=== PATIENT | female | born 1995 | race Hispanic/Latino ===

== ENCOUNTER 2018-09-11 10:02 | Emergency (ER) | payer OTHER ==
--- NOTE | 2018-09-11 10:45 | ER ---
Nurse's Notes [facility] Name: Vanessa Guerin Age: 23 yrs Sex: Female : 1995 Arrival Date: 09/11/2018 Time: 10:13 Bed 11 Private MD: Diagnosis: Acute suppurative otitis media;Acute upper respiratory infection, unspecified Presentation: 09/11 10:13 Presenting complaint: Patient states: i had the headache since yesterday, took Tylenol; hj denies fever; Thursday, i went to my doctor for headache and sinus congestion and teary eyes and they Rx me with eye drops and loratidine and its not helping me; reports R ear pain;. Transition of care: patient was not received from another setting of care. Onset of symptoms was September 11, 2018. Risk Assessment: Do you want to hurt yourself or someone else? Patient reports no desire to harm self or others. Initial Sepsis Screen: Does the patient meet any 2 criteria? No. Patient's initial sepsis screen is negative. Does the patient have a suspected source of infection? No. Patient's initial sepsis screen is negative. Care prior to arrival: None. 10:13 Method Of Arrival: Ambulatory 10:13 Acuity: GRACIA 4 Triage Assessment: 10:52 General: Appears in no apparent distress. Behavior is calm. Respiratory: Respiratory iw effort is even, unlabored. 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 - Social history:: Smoking status: Patient/guardian denies using tobacco. - Ebola Screening: : Patient negative for fever greater than or equal to 101.5 degrees Fahrenheit, and additional compatible Ebola Virus Disease symptoms Patient denies exposure to infectious person Patient denies travel to an Ebola-affected area in the 21 days before illness onset No symptoms or risks identified at this time. Screenin:52 Abuse screen: Denies threats or abuse. Denies injuries from another. Nutritional iw screening: No deficits noted. Tuberculosis screening: No symptoms or risk factors identified. Fall Risk None identified. Assessment: 10:30 General: Appears in no apparent distress. Behavior is calm, cooperative. Pain: iw Complains of pain in head. Neuro: Level of Consciousness is awake, alert, obeys commands, Oriented to person, place, time, situation, Moves all extremities. Cardiovascular: Capillary refill < 3 seconds in bilateral fingers Patient's skin is warm and dry. Respiratory: Airway is patent Breath sounds are clear bilaterally. Derm: Skin is intact, is healthy with good turgor. Musculoskeletal: Range of motion: intact in all extremities. Vital Signs: 10:16 BP 107 / 66; Pulse 79; Resp 18; Temp 98.3(O); Pulse Ox 97% on R/A; Weight 81.65 kg; hj Height 5 ft. 2 in. (157.48 cm); Pain 6/10; 10:16 Body Mass Index 32.92 (81.65 kg, 157.48 cm) hj ED Course: 10:13 Patient arrived in ED. hj 10:15 Triage completed. hj 10:16 Arm band placed on left wrist. hj 10:21 Kay Puentes FNP-C is PHCP. snw 10:21 Yoan Diaz MD is Attending Physician. snw 10:30 Patient has correct armband on for positive identification. iw 10:34 Veronica Bender, RN is Primary Nurse. iw 10:52 No provider procedures requiring assistance completed. Patient did not have IV access iw during this emergency room visit. Administered Medications: 10:53 Drug: Augmentin 500 mg Route: PO; iw Outcome: 10:44 Discharge ordered by MD. snw 10:52 Discharged to home ambulatory. iw 10:52 Condition: good 10:52 Discharge instructions given to patient, Instructed on discharge instructions, follow up and referral plans. Demonstrated understanding of instructions, follow-up care. 10:53 Patient left the ED. iw Signatures: Kay Puentes FNP-C TOP LIFT TRIMMER-Csnw Veronica Bender, RN RN iw Rambo Asher RN RN Corrections: (The following items were deleted from the chart) 10:18 10:16 Pulse 79bpm; Resp 18bpm; Pulse Ox 97% RA; Temp 98.3F Oral; 81.65 kg; Height 5 ft. hj 2 in.; BMI: 32.9; Pain 6/10; hj
--- NOTE | 2018-09-11 10:45 | EDPHYS ---
Physician Documentation [facility] Name: Vanessa Guerin Age: 23 yrs Sex: Female : 1995 Arrival Date: 09/11/2018 Time: 10:13 Bed 11 Private MD: ED Physician Yoan Diaz HPI: 09/11 10:41 This 23 yrs old Female presents to ER via Ambulatory with complaints of Cough, snw Congestion. 10:41 The patient or guardian reports cough, flu symptoms, low-grade fever, hoarse voice. snw Onset: The symptoms/episode began/occurred gradually, 5 day(s) ago, and became persistent. Severity of symptoms: At their worst the symptoms were moderate. Associated signs and symptoms: Pertinent positives: earache, rhinorrhea, sore throat. The patient has not experienced similar symptoms in the past. The patient has been recently seen by a physician: 4 day(s) ago, with similar presenting complaints, given abx eye drops and zyrtec. 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 - Social history:: Smoking status: Patient/guardian denies using tobacco. - Ebola Screening: : Patient negative for fever greater than or equal to 101.5 degrees Fahrenheit, and additional compatible Ebola Virus Disease symptoms Patient denies exposure to infectious person Patient denies travel to an Ebola-affected area in the 21 days before illness onset No symptoms or risks identified at this time. ROS: 10:36 Neck: Negative for injury, pain, and swelling, Cardiovascular: Negative for chest pain, snw palpitations, and edema. 10:36 Abdomen/GI: Negative for abdominal pain, nausea, vomiting, diarrhea, and constipation, Back: Negative for injury and pain, : Negative for injury, bleeding, discharge, and swelling, MS/Extremity: Negative for injury and deformity, Skin: Negative for injury, rash, and discoloration. 10:36 Constitutional: Positive for body aches, malaise. 10:36 Eyes: Positive for recent conjunctival infection. 10:36 ENT: Positive for ear pain, nasal discharge, sinus congestion, sore throat. 10:36 Respiratory: Positive for cough. 10:36 Neuro: Positive for headache. Exam: 10:36 Head/Face: Normocephalic, atraumatic. Eyes: Pupils equal round and reactive to light, snw extra-ocular motions intact. Lids and lashes normal. Conjunctiva and sclera are non-icteric and not injected. Cornea within normal limits. Periorbital areas with no swelling, redness, or edema. 10:36 Neck: Trachea midline, no thyromegaly or masses palpated, and no cervical lymphadenopathy. Supple, full range of motion without nuchal rigidity, or vertebral point tenderness. No Meningismus. Chest/axilla: Normal chest wall appearance and motion. Nontender with no deformity. No lesions are appreciated. Cardiovascular: Regular rate and rhythm with a normal S1 and S2. No gallops, murmurs, or rubs. Normal PMI, no JVD. No pulse deficits. Respiratory: Lungs have equal breath sounds bilaterally, clear to auscultation and percussion. No rales, rhonchi or wheezes noted. No increased work of breathing, no retractions or nasal flaring. Abdomen/GI: Soft, non-tender, with normal bowel sounds. No distension or tympany. No guarding or rebound. No evidence of tenderness throughout. Back: No spinal tenderness. No costovertebral tenderness. Full range of motion. Skin: Warm, dry with normal turgor. Normal color with no rashes, no lesions, and no evidence of cellulitis. MS/ Extremity: Pulses equal, no cyanosis. Neurovascular intact. Full, normal range of motion. Neuro: Awake and alert, GCS 15, oriented to person, place, time, and situation. Cranial nerves II-XII grossly intact. Motor strength 5/5 in all extremities. Sensory grossly intact. Cerebellar exam normal. Normal gait. Psych: Awake, alert, with orientation to person, place and time. Behavior, mood, and affect are within normal limits. 10:36 Constitutional: The patient appears alert, awake, uncomfortable. 10:36 ENT: External ear(s): are unremarkable, Ear canal(s): are normal, TM's: dullness, fluid levels, on the right, Nose: Nasal mucosa: edematous, Mouth: is normal, Posterior pharynx: erythema, that is moderate, Voice: is hoarse, Breath odor: strep like. Vital Signs: 10:16 BP 107 / 66; Pulse 79; Resp 18; Temp 98.3(O); Pulse Ox 97% on R/A; Weight 81.65 kg; hj Height 5 ft. 2 in. (157.48 cm); Pain 6/10; 10:16 Body Mass Index 32.92 (81.65 kg, 157.48 cm) hj MDM: 10:42 Data reviewed: vital signs, nurses notes. Data interpreted: Pulse oximetry: on room air snw is 97 %. Interpretation: normal. Counseling: I had a detailed discussion with the patient and/or guardian regarding: the historical points, exam findings, and any diagnostic results supporting the discharge/admit diagnosis, the need for outpatient follow up, to return to the emergency department if symptoms worsen or persist or if there are any questions or concerns that arise at home. Special discussion: Based on the history and exam findings, there is no indication for further emergent testing or inpatient evaluation. I discussed with the patient/guardian the need to see the primary care provider for further evaluation of the symptoms. 10:44 Patient medically screened. snw Administered Medications: 10:53 Drug: Augmentin 500 mg Route: PO; Disposition: 11:27 Co-signature as Attending Physician, Yoan Diaz MD. rn Disposition: 09/11/18 10:44 Discharged to Home. Impression: Acute suppurative otitis media, Acute upper respiratory infection, unspecified. - Condition is Stable. - Discharge Instructions: Otitis Media, Adult, Upper Respiratory Infection, Adult, Cool Mist Vaporizer, Fatigue, Cough, Adult, Rehydration, Adult, Heat Therapy. - Prescriptions for Augmentin 500- 125 mg Oral Tablet - take 1 tablet by ORAL route every 8 hours for 10 days; 30 tablet. Prednisone 20 mg Oral Tablet - take 2 tablet by ORAL route once daily for 5 days; 10 tablet. - Work release form, Medication Reconciliation Form, Thank You Letter, Antibiotic Education, Prescription Opioid Use form. - Follow up: Private Physician; When: 2 - 3 days; Reason: Recheck today's complaints, Continuance of care, Re-evaluation by your physician. Follow up: Emergency Department; When: As needed; Reason: Worsening of condition. Signatures: Kay Puentes, LEVI MAKER-C LEVI MAKER-Csnw Veronica Bender RN RN iw Nieto, Roman, MD MD rn Joaquin, Rambo, RN RN hj Corrections: (The following items were deleted from the chart) 10:44 10:43 Chart complete. kade braun 10:53 10:44 09/11/2018 10:44 Discharged to Home. Impression: Acute suppurative otitis media; iw Acute upper respiratory infection, unspecified. Condition is Stable. Forms are Medication Reconciliation Form, Thank You Letter, Antibiotic Education, Prescription Opioid Use. Follow up: Private Physician; When: 2 - 3 days; Reason: Recheck today's complaints, Continuance of care, Re-evaluation by your physician. Follow up: Emergency Department; When: As needed; Reason: Worsening of condition. snw
[2018-09-11] MEDS ORDERED: AMOX TR/K CLAV 400MG CHEW TAB PO ONE (10:50)
== END 2018-09-11 10:53 | disposition home or self-care (01) ==
LOC: ER 10:02
DX: H66.001 Acute suppurative otitis media without spontaneous rupture of ear drum, right ear (principal); J06.9 Acute upper respiratory infection, unspecified
CPT/HCPCS: 99283

== ENCOUNTER 2021-05-11 18:12 | Emergency (ER) | payer OTHER ==
--- OUTSIDE RECORDS SUMMARY | 2021-05-11 18:15 | XMS REPORT | Continuity of Care Document ---
:1995 Author Organization [facility] t Address [address] [place] [address] Care Team Providers Name Role Phone Pcp, Does Not Have A Primary Care Physician Susana Andrews Attending Clinician Unavailable Diana SHERWOOD Attending Clinician Unavailable Diana Sherwood MD Attending Clinician Susana Andrews Admitting Clinician Unavailable Payers Payer Name Policy Type Policy Number Effective Date Expiration Date Álvaro [employer] [id number] 2015 HEALTH 00:00:00 Problems Condition Condition Condition Status Onset Resolution Last Treating Co mments Source Name Details Category Date Date Treatment Clinician Date Obesity Obesity Disease Active Univers (BMI (BMI 3-03 ity of 30-39.9) 30-39.9) 00:00: [address] Allergies, Adverse Reactions, Alerts Allergy Allergy Status Severity Reaction(s) Onset Inactive Treating Comm ents Source Name Type Date Date Clinician No Known DA Active U 2016-02 [facility] No Known DA Active U 2016-02 [facility] All[facility]ie -[facility] NO KNOWN Drug Active Univers ALLERGIE Class ity of S [facility] Social History Social Habit Start Date Stop Date Quantity Comments Source Exposure to Not sure University SARS-CoV-2 [facility] (event) [place] Tobacco use and 2021-04-11 2021-04-11 Never used Universit y of exposure 00:00:00 00:00:00 [facility] Alcohol intake 2021-04-11 2021-04-11 Ex-drinker [facility] 00:00:00 00:00:00 (finding) [facility] Sex Assigned At [birth year] Universit y of 00:00:00 00:00:00 [facility] Smoking Status Start Date Stop Date Source Never smoker [facility] Medications Ordered Filled Start Stop Current Ordering Indication Dosage Frequency Signature Comments Components Source Medication Medication Date Date Medication? Clinician (SIG) Name Name NUVARING Yes [id number] 1{each} Insert 1 Univers 0.12-0.015 3-22 Each into ity of mg/24 hr 00:00: vagina [place] vaginal 00 once every Medica l insert month. [place] Insert vaginally and leave in place for 3 consecutiv e weeks, then remove for 1 week. Nitrofurant Yes [id number] 100mg Take 1 Univers oin&Nit. 3-03 capsule by ity o f [place] 00:00: mouth [place] 100 mg 00 (two) Medical capsule times [place] daily. Nitrofurant Yes [id number] 100mg Take 1 Univers oin&Nit. 3-03 capsule by ity o f [place] 00:[place] 100 mg 00 (two) Medical capsule times [place] daily. Vital Signs Vital Name Observation Time Observation Value Comments Source Systolic blood 2021-04-11 21:30:00 132 mm[Hg] [facility] Diastolic blood 2021-04-11 21:30:00 83 mm[facility]Hg[facility] 2021-04-11 21:30:00 88 /min [facility] Body temperature 2021-04-11 21:30:00 37.17 [facility] Res[facility] rate 2021-04-11 21:30:00 18 /min [facility] Body height 2021-04-11 21:30:00 162.6 cm [facility] Body weight 2021-04-11 21:30:00 95.709 kg [facility] BMI 2021-04-11 21:30:00 36.22 kg/m2 [facility] Procedures Procedure Date / Time Performed Performing Clinician Sourc e POCT TEST 2021-04-11 00:00:00 AdJulieta andrade [facility] POCT URINALYSIS W/O 2021-04-11 00:00:00 AdJulieta andrade [facility] SPECIFIC GRAVITY [facility] [id number] 2020-11-05 00:00:00 [facility] [id number] 2020-11-05 00:00:00 KRYSTIAN[facility] Encounters Start End Encounter Admission Attending Care Care Encounter Source Date/Time Date/Time Type Type Clinicians Facility Department ID 2020-11-05 Inpatient MARCOS Andrews [facility] [id number] [facility] 06:00:00 Tabahta [id number] [facility] 2020-11-01 Inpatient Darryl [facility] [id number] [facility] 10:49:00 Tabatha [id number] [facility] [place] 2020-10-31 Inpatient MARCOS Andrews [facility] [id number] [facility] 06:00:00 Tabatha [id number] [facility] 2020-10-27 Inpatient MARCOS Andrews [facility] [id number] [facility] 06:00:00 Tabatha [id number] [facility] 2021-07-31 2021-07-31 [facility] [id number] Univers 13:30:00 13:30:00 [facility] [id number] [facility]-04[facility] 2021-04-30 [facility] [id number] 09:00:00 09:00:00 [facility] 2021-04-29 2021-04-29 [facility]phone [facility] [id number] Univers 00:00:00 00:00:00 Julieta GARCIA [id number] maria luz [facility] [id number] Frances rea PROFESSIO [id number] Va dical NAL 134 [facility] 2021-04-11 2021-04-11 Office [facility] [id number] Univers 15:00:00 16:21:46 Visit Julieta [id number] [facility] [id number] Frances PEREZ [id number] Va dical NAL [address] [place] [address] 2021-04-11 2021-04-11 Outpatient R [facility] [id number] [facility] 15:00:00 16:21:46 JULIETA itmeena [facility] 2020-11-05 2020-11-06 Inpatient MARCOS Andrews [facility] OBPP [id number] [facility] 08:36:00 18:45:00 [place] 25 [facility] 2020-11-01 2020-11-01 Emergency ESSENCE Andrews [facility] [id number] [facility] 10:51:00 13:01:[address] Results Test Description Test Time Test Comments Results Result Comments Source POCT URINALYSIS W/O SPECIFIC GRAVITY 2021-04-11 21:43:00 Test Item Value Reference Range Interpretation Comme nts POCT PH U (test code = 3254) 5 mg/dl 5-8 POCT U LEUK EST (test code = 3263) + Negative - Negative POCT U NIT (test code = 3262) positive Negative - Negative POCT U PROT (test code = 3259) trace Negative - Negative POCT U GLU (test code = 3256) neg Negative - Negative POCT U KETONE (test code = 3258) neg Negative - Negative POCT U BLD (test code = 3257) Negative - Negative [id number] 21:42:00 Test Item Value Reference Range Interpretation Comments POCT PREG (test code = 1605) Negative On board controls acceptable with C Yes Line (test code = 3574) POCT PREG LOT # (test code = 3575) POCT PREG TEST DATE (test code = 3576) [facility] [id number] 10:43:00 Test Item Value Reference Range Interpretation Comments AG HEPATITIS B SURFACE (test code NONREACTIVE NONREACTIVE = HBSAG) AB HEPATITIS C [id number] 10:43:00 Test Item Value Reference Range Interpretation Comments AB HEPATITIS C (test code = NONREACTIVE NONREACTIVE HCVAB) SIGNAL TO CUTOFF (test code = 0.05 <0.80 N CUTOFF) AB [id number] 10:43:00 Test Item Value Reference Range Interpretation Comments AB TREPONEMA (test code = TREPAB) NONREACTIVE NONREACTIVE AB HIV 1 10:43:00 Test Item Value Reference Range Interpretation Comments AB HIV 1 2 (test NONREACTIVE NONREACTIVE Done by S [employer]álvar[employer] [facility] code = VSH47HD) 4th Gen HIV Ag/Ab Combo Screen COVID 19 Asymptomatic IH [id number] 10:40:00 Test Item Value Reference Range Interpretation Comments COVID 19 NEGATIVE NEGATIVE This test has b een Asymptomatic IH AG authorize d only for the (test code = detection ofpro teins from COVNONPUIAG) SARS-CoV-2, not for any other viruses orpathogens. N egative results should be treated as presumptive andconfirmed wi th a molecular assay , if necessary for patientmanageme nt. Negative result s do not rule out COVID- 19 andshould not b e used as the sole basis for treatment orpat ient management deci sions, including infec tion controldecision s. Negative result s should be considered i n thecontext of a patient's recent exposure s, history and thepresence of clinical signs and symptoms consis tent withCOVID-19. T his test has not been FD A cleared or approved; th e test hasbeen authori maria cd by FDA under an Emerge ncy Use Authorization(E UA) for use by laborato jessica certified under the CLIA thatmeet the re quirements to perform mode rate, high or waivedcomple xity tests. This david t is authorized for use at thePoint of Car e (POC), i.e., in patien t care settingsoperati ng under a CLIA Certificat e of Waiver, Certifi sotero ofCompliance, o r Certificate of Accreditation. This test is only authori zed for the duration of thedeclaration that circumstances e xist justifying theauthorizatio n of emergency use o f in vitro diagnostic test sfor detection and/o r diagnosis of CO VID-19 under Qavlthm21 4(b)(1) of the Act, 21 U.S .C. 360bbb-3(b)(1), unless theauthorizatio n is terminated or r evoked sooner. CBC W/AUTO [id number] 09:48:00 Test Item Value Reference Range Interpretation Comments WHITE BLOOD CELL (test code = WBC) 9.9 K/mm3 6.5-12.3 N RED BLOOD CELL (test code = RBC) 4.27 M/mm3 3.51-4.69 N HEMOGLOBIN (test code = HGB) 12.5 g/dL 10.1-13.8 N HEMATOCRIT (test code = HCT) 37.1 % 32.5-41.8 N MEAN CELL VOLUME (test code = MCV) 86.9 fL 84.6-96.6 N MEAN CELL HGB (test code = MCH) 29.3 pg 27.3-33.9 N MEAN CELL HGB CONCETRATION (test 33.7 gm/dL 32.0-34.2 N code = MCHC) RED CELL DISTRIBUTION WIDTH (test 14.0 % 12.2-16.3 N code = RDW) PLATELET COUNT (test code = PLT) 160 K/mm3 134-363 N MEAN PLATELET VOLUME (test code = 11.4 fL 9.2-12.7 N MPV) NEUTROPHIL % (test code = NT%) 77.2 % 57.9-77.3 N LYMPHOCYTE % (test code = LY%) 14.6 % 14.5-29.7 N MONOCYTE % (test code = MO%) 6.7 % 3.6-10.2 N EOSINOPHIL % (test code = EO%) 0.6 % 0.0-3.0 N BASOPHIL % (test code = BA%) 0.2 % 0.1-0.9 N NEUTROPHIL # (test code = NT#) 7.6 K/mm3 LYMPHOCYTE # (test code = LY#) 1.4 K/mm3 MONOCYTE # (test code = MO#) 0.7 K/mm3 EOSINOPHIL # (test code = EO#) 0.06 K/mm3 BASOPHIL # (test code = BA#) 0.0 K/mm3 RBC MORPHOLOGY REQUIRED (test code NORMAL NORMAL = RBCM) PLATELET MORPHOLOGY REQUIRED (test NORMAL NORMAL code = PLTMR) - US FET BIO PH ME W/O [id number] 00:00:00 [facility] : 1995 Sex: F Patient Name: ALIYA ROMERO Unit No: [id number] EXAMS: CPT CODE: [id number] US FET BIO PH ME W/O NST 50647 PROCEDURE INFORMATION: Exam: US Biophysical Profile Without Non-Stress Test Exam date and time: 11/01/2020 11:33 AM Age: 25 years old Clinical indication: Screening exam; Routine US screening of fetus; Third trimester (=28 weeks 0 days); ; Additional info: Decels in office TECHNIQUE: Imaging protocol: US biophysical profile without non-stresstesting. COMPARISON: US PREG AFTER 1ST TRI 12/04/2016 8:57 AM FINDINGS: Gestation: Presentation: Roa viable intrauterine gestation is demonstrated in vertex presentation. The heart rhythm is regular with a heart rate of 136 bpm. Placenta: The the placenta is located po steriorly and grade 3 with the inferior extent away from the internal os. Amniotic fluid index: The biophysical profile score is 8/8. The amniotic fluid index is 13.9 cm with the deepest pocket measuring 6.7 cm. Normal biophysical profile score. BIOPHYSICAL PROFILE: Breathin/2 Gross body movements: 2/2 tone: 2/2 Qualitative amniotic fluid: 2/2 Biophysical Profile Score: 8/8 MATERNAL ANATOMY: Right adnexa: The right ovary measures 4.1 cm by 1.8 cm x 2.8 cm Left adnexa: The left ovary measures 3.6 cm x 1.9 cm x 2.7 cm. Few corpus luteum cyst of are demonstrated in both ovaries. IMPRESSION: Normal biophysical profile score. at 1224 Reported and signed by: Uzma Malcolm MD CC: Tabatha Andrews MD Technologist: Mallika Angelo, CHRISTELMS Probe: Trnscrbd D/ (1224) GCD.CPS Orig Print D/T: S: 11/01/2020 (1224) [facility] NAME: ALIYA ROMERO Radiology Department PHYS:REYMUNDO Nuñez Tabatha Andrews [address] : 1995 AGE: 25 SEX: F [place] [address] LOC: DejahBELGICA PHONE #: [phone] EXAM DATE: 11/01/2020 STATUS: REG ER FAX #: [phone] RAD NO: Page 1 Signed Report Patient Name: ALIYA ROMERO Unit No: [id number] EXAMS: CPT CODE: [id number] US FET BIO PH ME W/O NST 39886 <Continued> [facility] NAME: ALIYA ROMERO Radiology Department PHYS: REYMUNDO AndrewsTabatha [address] : 1995 AGE: 25 SEX: F [place] [address] LOC: DejahBELGICA PHONE #: [phone] EXAM DATE: 11/01/2020 STATUS: REG ER FAX #: [phone] RAD NO: Page 2 Signed Report
[2021-05-11] MEDS ORDERED: ONDANSETRON 4 MG/2 ML VIAL ONE (18:44)
[2021-05-11] MEDS ORDERED: NA CHLORIDE 0.9% 1,000 ML ONE ×3 (18:44→22:47)
[2021-05-11] MEDS ORDERED: MORPHINE 4 MG/ML SYR ONE (18:44)
[2021-05-11] MEDS ORDERED: ACETAMINOPHEN 500 MG TAB ONE (18:44)
[2021-05-11 18:46] LABS: Urine Blood 2+ (Negative); Urine Glucose Trace (Negative); Urine Protein 2+ (Negative); Urine pH 6.5 (5.0-7.0)
[2021-05-11 18:54] LABS: Absolute Lymphocytes (CBC) 0.4 K/uL (0.7-4.9); Hematocrit 39.4 % (36.0-45.0); Lymphocytes % 3.2 % (15.3-44.8); MPV 8.2 fL (7.6-11.3); RBC Red Blood Cell Count 4.66 M/uL (3.86-4.86)
[2021-05-11 19:11] LABS: Albumin 3.3 g/dL (3.4-5.0); Bilirubin Total 2.4 mg/dL (0.2-1.0); Potassium 3.7 mmol/L (3.5-5.1); Protein, Total 7.9 g/dL (6.4-8.2)
[2021-05-11 19:35] LABS: SARS-COV-2 RT PCR NEGATIVE (NEGATIVE)
--- NOTE | 2021-05-11 19:40 | RAD REPORT ---
EXAM DESCRIPTION: CT - Abdomen Pelvis W Contrast - 05/11/2021 7:11 pm CLINICAL HISTORY: FLANK PAIN COMPARISON: Stone Protocol dated 05/08/2021 TECHNIQUE: Biphasic, helical CT imaging of the abdomen and pelvis was performed following 100 ml non -ionic IV contrast. No oral contrast administered. All CT scans are performed using dose optimization technique as appropriate and may include automated exposure control or mA/KV adjustment according to patient size. FINDINGS: No suspicious findings in the lung bases. The liver, spleen, and pancreas show no suspicious findings. Liver attenuation is borderline to mildl y fatty infiltrated. Gallbladder and biliary tree are also without suspicious finding. A 5 mm left UPJ calculus is present with no hydronephrosis. No delayed left renal function. Punctate nonobstructing 2 mm sized calyx calculi seen in the left kidney. Right kidney shows a delayed function relative to the left and there is heterogeneous areas of dimini shed attenuation scattered throughout the right renal parenchyma. Right kidney edematous with perinep hric stranding. There is mild hydronephrosis of the pelvis and calices. There is an 8 mm obstructing calculus in the proximal right ureter. Urinary bladder is fully contracted. No bladder calculi seen. Uterus and ovaries show no acute findin gs. A 2.3 cm left ovarian cyst is present. No acute bowel finding. The appendix is normal. No free air, free fluid or pneumatosis. No other are as of inflammatory stranding. No hernia, mass or bulky lymphadenopathy. No suspicious bony findings. IMPRESSION: Mild right-sided hydronephrosis secondary to an 8 mm proximal ureter calculus. Right-sided moderately severe pyelonephritis. Left kidney has a 5 mm UPJ calculus present but no evidence for hydronephrosis and no delayed functio n or abnormal parenchymal enhancement.
[2021-05-11 19:41] LABS: Urine Bacteria <20 /HPF (<20); Urine RBC <5 /HPF (NONE SEEN)
--- NOTE | 2021-05-11 20:00 | ER ---
Nurse's Notes [facility] Name: Vanessa Guerin Age: 26 yrs Sex: Female : 1995 Arrival Date: 05/11/2021 Time: 18:14 Bed 20 Private MD: Diagnosis: Pyelonephritis acute;Hydronephrosis with renal and ureteral calculous obstruction Presentation: 05/11 18:27 Chief complaint: Patient states: Chills, fever, dizzy \T\ right flank pain X 3-4 days. ld1 Coronavirus screen: At this time, the client does not indicate any symptoms associated with coronavirus-19. Ebola Screen: No symptoms or risks identified at this time. Initial Sepsis Screen: Does the patient meet any 2 criteria? No. Patient's initial sepsis screen is negative. Does the patient have a suspected source of infection? No. Patient's initial sepsis screen is negative. Risk Assessment: Do you want to hurt yourself or someone else? Patient reports no desire to harm self or others. Onset of symptoms was May 11, 2021. 18:27 Method Of Arrival: Ambulatory ld1 18:27 Acuity: GRACIA 3 ld1 Triage Assessment: 18:28 Headache History: Denies prior headaches. General: Appears in no apparent distress. ld1 comfortable, Behavior is calm, cooperative, appropriate for age. Pain: Complains of pain in right low back Pain does not radiate. Pain currently is 6 out of 10 on a pain scale. Quality of pain is described as throbbing, Pain began 2-3 days ago. Is continuous. EENT: No signs and/or symptoms were reported regarding the EENT system. Neuro: Level of Consciousness is awake, alert, obeys commands, Oriented to person, place, time, situation. Cardiovascular: Capillary refill < 3 seconds Patient's skin is warm and dry. Respiratory: Airway is patent Respiratory effort is even, unlabored. : No signs and/or symptoms were reported regarding the genitourinary system. CYLINDER CHECKER: 18:28 LMP N/A - Recent ld1 Historical: - Allergies: 18:28 No Known Allergies; ld1 - Home Meds: 18:28 None [Active]; ld1 - PMHx: 18:28 None; ld1 - PSHx: 18:28 None; ld1 - Immunization history:: Adult Immunizations up to date, Client reports receiving the 2nd dose of the Covid vaccine. - Social history:: Smoking status: Patient denies any tobacco usage or history of. Patient/guardian denies using alcohol. Screenin:22 Abuse screen: Denies threats or abuse. Denies injuries from another. Nutritional tk1 screening: No deficits noted. Tuberculosis screening: No symptoms or risk factors identified. Fall Risk None identified. Assessment: 19:22 General: Appears comfortable, obese, well groomed, well developed, well nourished, tk1 Behavior is calm, cooperative, appropriate for age. Pain: Denies pain. Neuro: Level of Consciousness is awake, alert, obeys commands, Oriented to person, place, time, situation, Appropriate for age Cycle Repairer are equal bilaterally Moves all extremities. Gait is steady, Speech is normal, Facial symmetry appears normal. Cardiovascular: Capillary refill < 3 seconds is brisk in bilateral fingers. Respiratory: Airway is patent Respiratory effort is even, unlabored, Respiratory pattern is regular, symmetrical, Breath sounds are clear bilaterally. GI: Abdomen is round non-distended, obese, Bowel sounds present X 4 quads. Abd is soft Abd is non tender X 4 quads. : No deficits noted. No signs and/or symptoms were reported regarding the genitourinary system. EENT: No deficits noted. No signs and/or symptoms were reported regarding the EENT system. Derm: No deficits noted. No signs and/or symptoms reported regarding the dermatologic system. Musculoskeletal: No deficits noted. No signs and/or symptoms reported regarding the musculoskeletal system. 20:30 Reassessment: Patient awaiting acceptance and transfer. Follow up labs collected and tk1 sent to lab. Meds administered per order. 21:32 Reassessment: Report called to DESMOND Kathleen at [facility]. tk1 22:42 Reassessment: Report given to [facility]. Patient transferred to [facility]. tk1 Vital Signs: 18:27 BP 117 / 71; Pulse 157; Resp 18; Temp 103.1(O); Pulse Ox 100% on R/A; Weight 95.25 kg; ld1 Height 5 ft. 2 in. (157.48 cm); Pain 6/10; 19:22 BP 104 / 64 RA Supine (auto/reg); Pulse 121 MON; Resp 20 S; Temp 98.6(O); Pulse Ox 99% tk1 on R/A; Pain 0/10; 20:26 Pain 0/10; tk1 20:30 BP 99 / 65 RA Supine (auto/lg); Pulse 108 MON; Resp 20; Temp 98.5(O); Pulse Ox 99% on tk1 R/A; Pain 0/10; 20:33 BP 104 / 68; Pulse 111; Resp 18; Temp 98.5(TE); Pulse Ox 100% on R/A; oe 21:28 BP 103 / 66 RA Supine (auto/reg); Pulse 100 MON; Resp 18 S; Pulse Ox 98% on R/A; Pain tk1 0/10; 18:27 Body Mass Index 38.41 (95.25 kg, 157.48 cm) ld1 ED Course: 18:14 Patient arrived in ED. am2 18:17 Tim Maciel NP is PHCP. pm1 18:17 Yoan Diaz MD is Attending Physician. pm1 18:19 Arnie Fletcher, RN is Primary Nurse. jd3 18:28 Triage completed. ld1 18:28 Arm band placed on right wrist. ld1 19:13 CT Abd/Pelvis - IV Contrast Only In Process Unspecified. EDMS 19:20 Primary Nurse role handed off by Arnie Fletcher, DESMOND cs9 19:22 Grace Mendez is Primary Nurse. tk1 19:22 Patient has correct armband on for positive identification. Bed in low position. Call tk1 light in reach. Side rails up X2. Adult w/ patient. Pulse ox on. NIBP on. 19:22 No provider procedures requiring assistance completed. IV is patent, is intact, with tk1 fluids infusing freely, with good blood return, 20g to left AC insitu from prior shift.. 20:05 COVID 19 CPL Sent. cs9 20:10 Notified ED physician of a critical lab result(s). band 26%. tw5 20:25 Lactate Sent. tk1 20:25 Procalcitonin Sent. tk1 20:25 Blood Culture Adult (2) Sent. tk1 22:46 Dr. Luana Tobar accepted patient. Patient going to [facility]. cs9 Administered Medications: 18:50 Drug: morphine 4 mg Route: IVP; Site: left antecubital; jd3 20:26 Follow up: Pain 0/10 Adult; Response: Pain is decreased; RASS: Alert and Calm (0) tk1 19:00 Drug: NS 0.9% 1000 ml Route: IV; Rate: 1 bolus; Site: left antecubital; jd3 20:28 Follow up: Response: No adverse reaction; IV Status: Completed infusion; IV Intake: tk1 1000ml 19:00 Drug: Zofran (Ondansetron) 4 mg Route: IVP; Site: left antecubital; jd3 20:28 Follow up: Response: Nausea is decreased tk1 19:00 Drug: Tylenol 1000 mg Route: PO; jd3 20:27 Follow up: Response: Temperature is decreased tk1 20:25 Drug: NS 0.9% 1000 ml Route: IV; Rate: 1000 ml; Infused Over: 1 hrs; Site: left tk1 antecubital; Delivery: Primary tubing; 20:26 Follow up: Response: No adverse reaction; IV Status: Completed infusion; IV Intake: tk1 1000ml 20:27 Drug: Rocephin (cefTRIAXone) 1 grams Route: IV; Rate: calculated rate; Infused Over: 30 tk1 mins; Site: left antecubital; Delivery: Primary tubing; 21:00 Follow up: Response: No adverse reaction; IV Status: Completed infusion; IV Intake: [id number] 22:45 Drug: NS 0.9% 1000 ml Route: IV; Rate: 125 ml/hr; Infused Over: 8 hrs; Site: left tk1 antecubital; Delivery: Primary tubing; 22:45 Follow up: Response: Medication administered at discharge.; IV Status: Infusion tk1 continued; IV Intake: 2ml Intake: 20:26 IV: 1000ml; Total: 1000ml. tk1 20:28 IV: 1000ml; Total: 2000ml. tk1 21:00 IV: 50ml; Total: 2050ml. tk1 22:45 IV: 2ml; Total: 2052ml. tk1 Outcome: 19:59 ER care complete, transfer ordered by . pm1 21:30 Transferred by ground EMS to other acute care facility: [facility]. Transfer form tk1 completed. 21:30 Condition: stable 21:30 Instructed on the need for transfer. 22:46 Patient left the ED. tk1 Addendum: 05/15/2021 08:28 Addendum: Culture Results: Positive urine culture. Pt was transferred to [facility], a a5 called pt and left voice mail. Signatures: Dispatcher [employer] Shanna Davalos, RN RN aa5 Tim Maciel, MACHINE GUNNER MACHINE GUNNER pm1 Catrachito Parsons Amanda am2 Arnie Fletcher RN RN jd3 Landy Osborn RN RN ld1 Latha Guerra tw5 Betty Greenberg 9 Grace Mendez tk1 Corrections: (The following items were deleted from the chart) 05/11 19:01 19:00 Zofran (Ondansetron) 4 mg IVP in right antecubital jd3 jd3 20:35 20:33 BP 104 / 68; Pulse 111bpm; Resp 18bpm; Pulse Ox 100% RA; Temp 98.5F Temporal; oe oe
--- NOTE | 2021-05-11 20:00 | EDPHYS ---
Physician Documentation [facility] Name: Vanessa Guerin Age: 26 yrs Sex: Female : 1995 Arrival Date: 05/11/2021 Time: 18:14 Bed 20 Private MD: ED Physician Yoan Diaz HPI: 05/11 18:31 This 26 yrs old Female presents to ER via Ambulatory with complaints of Fever, pm1 Headache, Back Pain, chills. 18:31 The patient complains of pain in the right low back. The pain does not radiate. Onset: pm1 The symptoms/episode began/occurred 4 day(s) ago. Modifying factors: The symptoms are alleviated by nothing. the symptoms are aggravated by nothing. Associated signs and symptoms: Pertinent positives: fever, headache, Darkened urine, Pertinent negatives: diarrhea, nausea, vomiting. The patient has not experienced similar symptoms in the past. The patient has been recently seen by a physician: 2 week(s) ago, with different complaint(s), Taking medications for weight loss. Patient took Advil for the fever and chills 30 minutes prior to arrival. her mother also started an IV saline lock on her right AC and infused 1L NS prior to arrival. LOCOMOTIVE OILER: 18:28 LMP N/A - Recent ld1 Historical: - Allergies: 18:28 No Known Allergies; ld1 - Home Meds: 18:28 None [Active]; ld1 - PMHx: 18:28 None; ld1 - PSHx: 18:28 None; ld1 - Immunization history:: Adult Immunizations up to date, Client reports receiving the 2nd dose of the Covid vaccine. - Social history:: Smoking status: Patient denies any tobacco usage or history of. Patient/guardian denies using alcohol. ROS: 18:31 Eyes: Negative for injury, pain, redness, and discharge, ENT: Negative for injury, pm1 pain, and discharge, Cardiovascular: Negative for chest pain, palpitations, and edema, Respiratory: Negative for shortness of breath, cough, wheezing, and pleuritic chest pain, Abdomen/GI: Negative for abdominal pain, nausea, vomiting, diarrhea, and constipation. 18:31 MS/Extremity: Negative for injury and deformity, Skin: Negative for injury, rash, and discoloration. 18:31 Constitutional: Positive for chills, fever. 18:31 Back: Positive for flank pain, on the right. 18:31 : Positive for flank pain, darkened urine, Negative for burning with urination, vaginal discharge. 18:31 All other systems are negative. Exam: 18:31 Head/Face: Normocephalic, atraumatic. pm1 18:31 Skin: Warm, dry with normal turgor. Normal color with no rashes, no lesions, and no evidence of cellulitis. MS/ Extremity: Pulses equal, no cyanosis. Neurovascular intact. Full, normal range of motion. 18:31 Constitutional: The patient appears in no acute distress, alert, awake, comfortable, non-toxic, well developed, well hydrated, well groomed, well nourished, febrile. 18:31 ENT: External ear(s): no acute changes, Ear canal(s): no acute changes, TM's: no acute changes, Mouth: no acute changes, Posterior pharynx: Airway: no evidence of obstruction, Tonsils: swelling, is not appreciated, erythema, that is moderate, exudate, is not appreciated, peritonsillar mass, is not appreciated. 18:31 Neck: Exam negative for acute changes, ROM/movement: no acute changes. 18:31 Cardiovascular: Rate: tachycardic, Rhythm: regular, Pulses: no pulse deficits are appreciated, Heart sounds: normal, normal S1and S2, Edema: is not appreciated. 18:31 Respiratory: Exam negative for acute changes, respiratory distress, shortness of breath, Breath sounds: are clear throughout. 18:31 Abdomen/GI: Exam negative for acute changes, Inspection: abdomen appears normal, Palpation: abdomen is soft and non-tender, in all quadrants. 18:31 Back: pain, that is mild, of the right low back, normal spinal alignment noted. 18:31 Neuro: Exam negative for acute changes, Orientation: is normal, Mentation: is normal, Motor: is normal, moves all fours, Gait: is steady, at a normal pace, without difficulty. Vital Signs: 18:27 BP 117 / 71; Pulse 157; Resp 18; Temp 103.1(O); Pulse Ox 100% on R/A; Weight 95.25 kg; ld1 Height 5 ft. 2 in. (157.48 cm); Pain 6/10; 19:22 BP 104 / 64 RA Supine (auto/reg); Pulse 121 MON; Resp 20 S; Temp 98.6(O); Pulse Ox 99% tk1 on R/A; Pain 0/10; 20:26 Pain 0/10; tk1 20:30 BP 99 / 65 RA Supine (auto/lg); Pulse 108 MON; Resp 20; Temp 98.5(O); Pulse Ox 99% on tk1 R/A; Pain 0/10; 20:33 BP 104 / 68; Pulse 111; Resp 18; Temp 98.5(TE); Pulse Ox 100% on R/A; oe 21:28 BP 103 / 66 RA Supine (auto/reg); Pulse 100 MON; Resp 18 S; Pulse Ox 98% on R/A; Pain tk1 0/10; 18:27 Body Mass Index 38.41 (95.25 kg, 157.48 cm) ld1 MDM: 18:17 Patient medically screened. pm1 19:57 Data reviewed: vital signs. Data interpreted: Pulse oximetry: on room air is 100 %. pm1 Interpretation: normal. Counseling: I had a detailed discussion with the patient and/or guardian regarding: the historical points, exam findings, and any diagnostic results supporting the discharge/admit diagnosis, lab results, radiology results, the need to transfer to another facility. 21:16 Physician consultation: Abe Gallagher regarding regarding transfer, patient's condition, pm1 and will see patient. 05/11 18:28 Order name: CBC with Diff; Complete Time: 20:13 pm1 05/11 18:28 Order name: CMP; Complete Time: 19:14 pm1 05/11 18:28 Order name: Lipase; Complete Time: 19:14 pm1 05/11 18:28 Order name: Urine Microscopic Only; Complete Time: 19:43 pm1 05/11 18:29 Order name: COVID-19/FLU A+B (Document "Date of Onset" if Symptomatic); Complete Time: pm1 19:43 05/11 18:29 Order name: Strep; Complete Time: 19:51 pm1 05/11 18:46 Order name: Urine Dipstick-Ancillary; Complete Time: 18:50 EDMS 05/11 18:57 Order name: Manual Differential; Complete Time: 20:13 EDMS 05/11 19:19 Order name: Urine --Ancillary (enter results); Complete Time: 20:22 cs9 05/11 19:44 Order name: Urine Culture EDMS 05/11 19:50 Order name: Blood Culture Adult (2) pm1 05/11 19:50 Order name: Procalcitonin; Complete Time: 21:06 pm1 05/11 19:50 Order name: Lactate; Complete Time: 20:47 pm1 05/11 18:28 Order name: CT Abd/Pelvis - IV Contrast Only; Complete Time: 19:43 pm1 05/11 18:28 Order name: IV Saline Lock; Complete Time: 18:59 pm1 05/11 18:28 Order name: Labs collected and sent; Complete Time: 19:00 pm1 05/11 18:28 Order name: Urine Dipstick-Ancillary (obtain specimen); Complete Time: 18:37 pm1 05/11 18:28 Order name: Urine Test (obtain specimen); Complete Time: 18:37 pm1 05/11 19:44 Order name: Vital Signs; Complete Time: 20:27 pm1 05/11 19:52 Order name: COVID 19 CPL EDMS 05/11 19:53 Order name: Throat Culture EDMS Administered Medications: 18:50 Drug: morphine 4 mg Route: IVP; Site: left antecubital; jd3 20:26 Follow up: Pain 0/10 Adult; Response: Pain is decreased; RASS: Alert and Calm (0) tk1 19:00 Drug: NS 0.9% 1000 ml Route: IV; Rate: 1 bolus; Site: left antecubital; jd3 20:28 Follow up: Response: No adverse reaction; IV Status: Completed infusion; IV Intake: tk1 1000ml 19:00 Drug: Zofran (Ondansetron) 4 mg Route: IVP; Site: left antecubital; jd3 20:28 Follow up: Response: Nausea is decreased tk1 19:00 Drug: Tylenol 1000 mg Route: PO; jd3 20:27 Follow up: Response: Temperature is decreased tk1 20:25 Drug: NS 0.9% 1000 ml Route: IV; Rate: 1000 ml; Infused Over: 1 hrs; Site: left tk1 antecubital; Delivery: Primary tubing; 20:26 Follow up: Response: No adverse reaction; IV Status: Completed infusion; IV Intake: tk1 1000ml 20:27 Drug: Rocephin (cefTRIAXone) 1 grams Route: IV; Rate: calculated rate; Infused Over: 30 tk1 mins; Site: left antecubital; Delivery: Primary tubing; 21:00 Follow up: Response: No adverse reaction; IV Status: Completed infusion; IV Intake: [id number] 22:45 Drug: NS 0.9% 1000 ml Route: IV; Rate: 125 ml/hr; Infused Over: 8 hrs; Site: left tk1 antecubital; Delivery: Primary tubing; 22:45 Follow up: Response: Medication administered at discharge.; IV Status: Infusion tk1 continued; IV Intake: 2ml Disposition: 05/12 10:51 Co-signature as Attending Physician, Yoan Diaz MD. rn Disposition Summary: 05/11/21 19:59 Transfer Ordered Transfer Location: Other Acute Care Facility pm1 Reason: Specialty pm1 Condition: Stable pm1 Problem: new pm1 Symptoms: have improved pm1 Accepting Physician: (05/11/21 22:46) tk1 Diagnosis - Pyelonephritis acute pm1 - Hydronephrosis with renal and ureteral calculous obstruction pm1 Forms: - Medication Reconciliation Form pm1 - SBAR form pm1 Signatures: Dispatcher [employer] EDYoan Shah MD MD rn [place] Montejo, PILLAR MAN-C PILLAR MAN-Cla1 Tim Maciel, INSURANCE CLAIMS EXAMINER INSURANCE CLAIMS EXAMINER pm1 Arnie Fletcher RN RN jLandy Hernandes RN RN ld1 Grace Mendez tk1 Corrections: (The following items were deleted from the chart) 05/11 22:46 19:59 pm1 tk1
[2021-05-11 20:11] LABS: Blood Morphology Comment NOT SEEN (NOT SEEN); Platelet Estimate ADEQ
[2021-05-11] MEDS ORDERED: NA CHLORIDE 0.9% 50 ML ONE (20:23)
[2021-05-11] MEDS ORDERED: CEFTRIAXONE 1000 MG/VIAL ONE (20:23)
[2021-05-11 23:12] VITALS: TEMP 98.5
[2021-05-11 23:15] VITALS: BP 103/66; O2SAT 98
== END 2021-05-11 22:46 ==
LOC: ER 18:12
DX: N10 Acute pyelonephritis (principal); N13.2 Hydronephrosis with renal and ureteral calculous obstruction; Z20.822 Contact with and (suspected) exposure to COVID-19
CPT/HCPCS: 96365; 96361; 87040 ×2; 87070; 87088; 85025; 87086; 36415; 81025; 82565; 87081; 83605; 87077; 87186; 83690; 80053; 84145; 0240U; 74177; 96375; 99285; Q9967; J7030 ×3; J2405; 81003; 81015

== ENCOUNTER 2022-02-19 17:35 | Emergency (ER) | payer OTHER ==
--- OUTSIDE RECORDS SUMMARY | 2022-02-19 17:39 | XMS REPORT | Continuity of Care Document ---
:1995 Author Organization [facility] t Address [address] [place] [address] Care Team Providers Name Role Phone PCP, PATIENT DOES NOT HAVE A Primary Care Physician UnavailJUAN Hare Attending Clinician Unavailable Oli Cho NP Attending Clinician OLI CHO Attending Clinician Unavailable Doctor Unassigned, [place] Attending Clinician Unavailable Julieta Galicia MD Attending Clinician Celso Spencer Attending Clinician Unavailable QI BAUTISTA Attending Clinician Unavailable Taurus Murphy Attending Clinician Unavailable JULIETA GALICIA Attending Clinician Unavailable Tabatha Andrews Attending Clinician Unavailable Tabatha Andrews Admitting Clinician Unavailable Taurus Murphy Admitting Clinician Unavailable Payers Payer Name Policy Type Policy Number Effective Date Expiration Date S nathalie [place] [employer] [id number] 2015 HEALTH 00:00:00 Problems Condition Condition Condition Status Onset Resolution Last Treating Co mments Source Name Details Category Date Date Treatment Clinician Date Sterilizat Sterilizat Disease Active U nivers ion ion 7-13 ity of consult consult 00:00: [address] Encounter Encounter Disease Active Uni vers for female for female 7-13 it y of 00:00: [place] control control [address] [place] [address] BMI BMI Disease Active Univers 38.0-38.9, 38.0-38.9, 7-13 it y of adult adult 00:00: [address] Allergies, Adverse Reactions, Alerts Allergy Allergy Status Severity Reaction(s) Onset Inactive Treating Comm ents Source Name Type Date Date Clinician No Known DA Active U [facility]02 [place] [facility] 00:00: d 00 [place] No Known DA Active U 2016-02 [facility] 1-15 [facility] [address] [place] [address] No Known DA Active U 2016-02 [facility] Allergie 1-15 Clear s 00:00: [place] 00 [facility] NO KNOWN Drug Active Univers ALLERGIE Class ity of S [facility] Social History Social Habit Start Date Stop Date Quantity Comments Source Alcohol intake 2021-09-18 2021-09-18 Current drinker Unive rsity of 00:00:00 00:00:00 of alcohol [facility] (finding) [place] Exposure to 2021-08-10 2021-08-20 Not sure [facility]-CoV-2 00:00:00 13:50:00 [facility] (event) [place] Tobacco use and 2021-08-20 2021-08-20 Smokeless tobacco Un iversity of exposure 00:00:00 00:00:00 non-user [facility] Sex Assigned At [birth year] Universit y of 00:00:00 00:00:[address] [facility] Smoking Status Start Date Stop Date Source Never smoked tobacco [facility] Medications Ordered Filled Start Stop Current Ordering Indication Dosage Frequency Signature Comments Components Source Medication Medication Date Date Medication? Clinician (SIG) Name Name norgestimat Yes [id number] 1{tbl} Take 1 Univers e-ethinyl 7-12 tablet by ity o f estradioL [place] 00 the Medical [facility] morning. Sha YOUNGER, 28,) 0.18/0.215/ 0.25 mg-25 mcg tablet norgestimat Yes [id number] 1{tbl} Take 1 Univers e-ethinyl 7-12 tablet by ity o [place] estradioL [place] 00 the Medical [facility]EN morning. Toby h LO, 28,) 0.18/0.215/ 0.25 mg-25 mcg tablet Nitrofurant 2021- Yes [id number] 100mg Take 1 Univers oin&Nit. 3-03 capsule by ity o f Macrocryst 00:00[place] 100 mg 00 (two) Medical capsule times [place] daily. Nitrofurant 2021-0 Yes [id number] 100mg Take 1 Univers oin&Nit. 3-03 capsule by ity o [place] Mac[place] 100 mg 00 (two) Medical capsule times [place] daily. Vital Signs Vital Name Observation Time Observation Value Comments Source Systolic blood 2021-09-17 19:48:00 115 mm[Hg[facility] Diastolic blood 2021-09-17 19:48:00 79 mm[Hg] [facility] Heart rate 2021-09-17 19:48:00 50 /min [facility] Respiratory rate 2021-09-17 19:48:00 18 /min [facility] Body height 2021-09-17 19:48:00 157.5 cm [facility] Body weight 2021-09-17 19:48:00 93.441 kg [facility] BMI 2021-09-17 19:48:00 37.68 kg/m2 [facility] Oxygen saturation in 2021-09-17 19:48:00 97 /min [facility] Arterial blood by [facility] Pulse oximetry [place] Procedures Procedure Date / Time Performed Performing Clinician Vernon doherty [id number] 2021-05-12 00:00:00 CORTEZ [facility] [id number] 2021-05-12 00:00:00 JANICEE [facility] [id number] 2020-11-05 00:00:00 KRYSTIAN.09 [facility] [id number] 2020-11-05 00:00:00 [facility] Encounters Start End Encounter Admission Attending Care Care Encounter Source Date/Time Date/Time Type Type Clinicians Facility Department ID 2021-10-18 2021-10-18 Outpatient JUAN CARDOZA [facility] [id number] Univers 10:30:00 10:30:[address] [facility] 2021-09-17 2021-09-17 Office [facility] [id number] Univers 14:30:00 15:13:17 Visit Oli WASSERMAN [id number] it y of WOMEN'S 4.2.7.2.686 [facility] [id number] [address] 2021-09-17 2021-09-17 Outpatient R TAMMIE [facility] B [id number] Univers 14:30:00 15:13:17 HEATHEROLI SPENCER [facility] 2021-09-17 2021-09-17 Outpatient R JENNIFER [facility] B [id number] Univers 14:30:00 14:30:00 [facility] 2021-09-17 2021-09-17 Orders Doctor MYCHAL [id number] Univers 00:00:00 00:00:00 Only Unassigned, KAMRYN [id number] ity of [place] [facility] 4.2.7.2.686 [facility] [phone] [place] [address] [place] 2021-09-03 2021-09-03 Telephone [facility] [id number] Univers 00:00:00 00:00:00 Oli WASSERMAN [id number] it y of PEDIATRIC 4.2.7.2.686 [facility] [id number] [address] 2021-08-20 2021-08-20 Outpatient R HEATEHROLI SPENCER [facility] B [id number] Univers 13:45:00 14:24:16 TAMMIELOI [facility] 2021-08-20 2021-08-20 Office [facility] [id number] Univers 13:45:00 14:24:16 Visit Oli LUX [id number] it y of [place] [facility] [phone] [facility] [address] 2021-08-20 2021-08-20 Outpatient R OLI CHO [facility] B [id number] Univers 13:45:00 14:24:16 OLI CHO [facility] 2021-08-20 2021-08-20 Outpatient R OLI CHO [facility] B [id number] Univers 13:45:00 13:45:00 OLI CHO [facility] 2021-08-20 2021-08-20 Orders Doctor MYCHAL [id number] Univers 00:00:00 00:00:00 Only Unassigned, AKMRYN [id number] ity of [facility] 4.2.7.2.686 Dave as [id number] [facility] 009 Branch 2021-08-19 2021-08-19 [facility] [id number] [facility] 00:00:00 00:00:00 Julieta GARCIA [id number] ity [facility] [place]2.[place] [phone] [address] 2021-07-10 2021-07-10 Outpatient Celso Huertas [facility] LA0 [id number] [facility] 12:24:00 12:24:00 96 [facility] [place] 2021-06-20 2021-06-20 Outpatient Celso Huertas [facility] [id number] [facility] 07:47:00 07:47:00 [id number] [facility] [place] 2021-06-12 2021-06-20 Inpatient Celso [facility]as [facility] YANN [id number] [id number] [facility] 10:30:00 07:47:00 60 [facility] [place] 2021-06-03 2021-06-03 Outpatient Susana BAUTISTA [facility] [id number] Univers 13:00:00 13:00:00 QI [facility] 2021-05-12 2021-05-13 Inpatient ESSENCE Murphy [facility] [id number] [facility] 15:49:00 13:56:00 Taurus 57 [facility] 2021-05-12 2021-05-12 Outpatient PENNY Murphy [id number] [facility] 08:13:00 08:13:00 Taurus 26 [facility] 2021-04-30 2021-04-30 Outpatient R ADUM, [facility] [id number] Univers 09:00:00 09:00:00 JULIETA ity [facility] 2021-04-30 2021-04-30 Outpatient R ADUM, [facility] [id number] Univers 09:00:00 09:00:00 JULIETA ity [facility] 2021-04-29 2021-04-29 Telephone Ad, [facility] [id number] Univers 00:00:00 00:00:00 Julieta Ortiz JOSE [id number] ity of [facility] 4.2.7.2.[place] [phone] Ne dical NAL [address] [place] [address] 2021-04-11 2021-04-11 Office Ad, [facility] [id number] Univers 15:00:00 16:21:46 Visit Julieta Ortiz JOSE [id number] ity of [place] [phone] Ne dical NAL [address] [place] [address] 2021-04-11 2021-04-11 Outpatient R AD, [facility] [id number] Univers 15:00:00 16:21:46 JULIETA ity [facility] 2021-04-11 2021-04-11 Outpatient R AD, [facility] [id number] Univers 15:00:00 15:00:00 JULIETA ity [facility] 2021-04-11 2021-04-11 Orders Doctor HORTA [id number] Univers 00:00:00 00:00:00 Only Unassigned, KAMRYN [id number] ity of [place] [facility] 4.2.7.2.686 Dave as [phone] [address] 2020-11-05 2020-11-06 Inpatient CORRIE Ireland LD [id number] [facility] 06:00:00 18:45:[address] [facility] 2020-11-01 2020-11-01 Inpatient CORRIE Phan BELGICA [id number] [facility] 10:49:00 13:01:[address] [facility] Results Test Description Test Time Test Comments Results Result Sourc e Comments - US RETROPERITONEAL 2021-07-10 COM 14:34:[facility] 1995 Sex: F * Name: ALIYA ROMERO [facility] : 1995 Age/S: 26 / F [id number] [facility] Unit #: [id number] Loc: [place] [address] Phys: Celso Spencer MD Acct: [id number] Dis Date: Status: REG CLI PHONE #: [phone] Exam Date: 07/10/2021 1349 FAX #: Reason: RENAL CALCULI EXAMS: CPT: [id number] [facility] COM [id number] RENAL ULTRASOUND DICTATION LOCATION: S 17 History: Renal calculi. Technique: Transabdominal sonography of the kidneys and bladder were performed. No prior exams are available for comparison. Findings: Both kidneys are normal in size, shape and echotexture. Renal cortical thickness is 1 cm on each side. The right kidney measures 10.3 x 4.5 x 5.5 cm, and the left kidney measures 11.0 x 4.3 x 5.1 cm. A nonobstructing 3 mm right renal calculus is noted. There are 2 nonobstructing left renal calculi measuring 4 mm and 3 mm. No focal mass, obstructive calculus, hydronephrosis or perirenal inflammatory process is seen on either side. No obvious bladder abnormality is seen. IMPRESSION: 1. Tiny bilateral nonobstructing renal calculi as described. 2. No other obvious abnormality with either kidney or with the urinary bladder. at 1434 Reported and signed by: Wilbur Sauer Jr., M.D. CC: Celso Spencer MD; Tabatha Andrews MD Technologist: Yu Hurtado Trnscb Date/Time: 07/10/2021 (3042) [place] PAGE 1 Signed Report Name: ALIYA ROMERO [place] : 1995 Age/S: 26 / F [id number] [address] [place] [facility] Unit #: [id number] Loc: [place] [address] Phys: Celso Spencer MD Acct: [id number] Dis Date: Status: REG CLI PHONE #: [phone] Exam Date: 07/10/2021 1349 FAX #: Reason: RENAL CALCULI EXAMS: CPT: [id number] [facility] [id number] <Continued> Orig Print D/T: S: 07/10/2021 (6571) Probe: PAGE 2 Signed Report CALCULI URINARY 2021-06-27 17:09:00 Test Item Value Reference Range Interpretation Comme nts ST COLOR (test code = COLST) Brown See_Comment [Automated message] The system which generated this result transmitted ref erence range: (). The reference r angie was not used to interpret th is result as normal/abnormal . ST SIZE (test code = SIZST) 5x3 mm See_Comment Multiple pieces received. Dimensions of t he largest piecereported. [Automated message] The system [facility] [employer] generated this result transmit shanda reference range: (). The reference range was not used to int erpret this result as normal/abnor mal. ST WEIGHT (test code = WGTST) 90 mg See_Comment [Automated message] The system which generated this result transmitted ref erence range: (). The reference r angie was not used to interpret th is result as normal/abnormal . ST COMPOSITION (test code = Comment See_Comment Percentage (Represents the % COMPST) composition) [A utomated message] The system [employer] generated this result transmit shanda reference range: (). The reference range was not used to int erpret this result as normal/abnor mal. ST CA OXALATE DIHYDRATE (test 10 % See_Comment [Automated message] The system code = CAOXDST) which genera shanda this result transmitted ref erence range: (). The reference r angie was not used to interpret th is result as normal/abnormal . ST CA OXALATE MONOHYDRATE 60 % See_Comment [ Automated message] The system (test code = CAOXMST) which generated this result transmitted ref erence range: (). The reference r angie was not used to interpret th is result as normal/abnormal . ST COMMENT 2 (test code = Comment See_Comment Ca lculus received in liquid. Wet CMTST2) calculi must be driedbefore analysis, which delays reporting of results. Darling vingcalculi in liquid (such as water, saline, blood, urine) m aylead to changes in composition. [Automated message] The sy stem which generated this result transmitted reference range : (). The reference range was not u sed to interpret this result as normal/abnormal. ST PHOTO (test code = PHOTST) Comment See_Comment Photograph will follow under a separate cover [Automated message] The system [employer] generated this result transmit shanda reference range: (). The reference range was not used to int erpret this result as normal/abnor mal. ST COMMENT 3 (test code = Comment See_Comment Ph ysician questions regarding CMTST3) Calculi Analysi s contactLabCorp at: . [Automated message] The sy stem which generated this result transmitted reference range : (). The reference range was not u sed to interpret this result as normal/abnormal. - XR FLUOROSCOPY 0-60 [id number] 13:41:00 [facility] 1995 Sex: F Name: ALIYA ROMERO [place] : 1995 Age/S: 26 / F [id number] [address] [place] [address] [facility] Unit #: [id number] Loc: [place] [address] Phys: Celso Spencer MD Acct: [id number] Dis Date: Status: REG [facility] PHONE #: [phone] Exam Date: 06/20/2021 102 FAX #: Reason: CYSTO RETRO PYELO EXAMS: CPT: [id number] XR FLUOROSCOPY 0-60 MIN 19093 Fluoro Time: 95.4 DAP (Gy m2): Air Kerma (mGy): 40.97 EXAM: - XR FLUOROSCOPY 0-60 MIN HISTORY: CYSTO RETRO PYELO Location code: C3 COMPARISON: None available time of interpretation. FINDINGS: Intraoperative fluoroscopy was provided for Celso Spencer MD. Radiologist was not present for the procedure. 2 fluoroscopy images were obtained. Please see surgical report. IMPRESSION: 1. As above. Fluoroscopy time: 95.4 seconds Cumulative dose: 40.97 mGy at 1341 Reported and signed by: Agnieszka Núñez M.D. CC: eClso Spencer MD; Arturo Andrews MD PAGE 1 Signed Report Name: ALIYA ROMERO [place] : 1995 Age/S: 26 / F [place] Unit #: [id number] Loc: [place] [address] Phys: Celso Spencer MD Acct: [id number] Dis Date: Status: REG [facility] PHONE #: [phone] Exam Date: 06/20/2021 102 FAX #: Reason: CYSTO RETRO PYELO EXAMS: CPT: [id number] XR FLUOROSCOPY 0-60 MIN 20405 Fluoro Time: 95.4 DAP (Gy m2): Air Kerma(mGy): 40.97 <Continued> Technologist: Cyndy Perea, RT(R) Trnscb Date/Time: 06/20/2021 (1653) [id number] Orig Print D/T: S: 06/20/2021 (4956) PAGE 2 Signed ReportCOVID 19 INHOUSE [id number] 11:40:00 Test Item Value Reference Range Interpretation Comments COVID 19 INHOUSE AG NEGATIVE Negative Per manu facturer, (test code = negative result s should [id number]) be treated aspr esumptive and, if inconsi stent with clinical signs andsymptoms or necessary for patient man agement, should betested with an alternative mol ecular assay. Negative resultsdo not preclude SA RS-CoV-2 infection and s hould not be usedas the s ole basis for patient man agement decisions. Nega tive results should be considered in t he context of apatient's r ecent exposures, hist ory, presence of cli nicalsigns and symptoms co nsistent with COVID-19. BASIC METABOLIC [id number] 11:33:00 Test Item Value Reference Range Interpretation Comments SODIUM (test code = NA) 139 mmol/L 134-147 N POTASSIUM (test code = 4.1 mmol/L 3.4-5.0 N K) CHLORIDE (test code = 106 mmol/L 100-108 N CL) CARBON DIOXIDE (test 25 mmol/L 21-32 N code = CO2) ANION GAP (test code = 8.0 GAP calc 4.0-15.0 N GAP) GLUCOSE (test code = 95 MG/DL 70-110 N GLU) BLOOD UREA NITROGEN 19 MG/DL 7-18 H (test code = BUN) GLOMERULAR FILTRATION >=60 max estimate >60 RATE (test code = GFR) estGFR CREATININE (test code = 1.1 MG/DL 0.6-1.0 H CREAT) CALCIUM (test code = CA) 9.9 MG/DL 8.5-10.1 N HCG SERUM [id number] 11:33:00 Test Item Value Reference Range Interpretation Comments HCG SERUM QUAL (test SERUM NEGATIVE SCREEN NEGATIVE code = HCGQL) PROTHROMBIN [id number] 11:28:00 Test Item Value Reference Range Interpretation Comments PT PATIENT (test 12.9 SECONDS 9.3-12.9 N code = PTP) INTERNATIONAL NORMAL 1.13 INR Unit 0.8-1.2 N TARG ET INR BY RATIO (test code = INDICATIO N Indication INR) INR1. Prophylax is of venous thrombos is 2.0 - 3.0 (orthoped ic surgery), Proph ylaxis of venous throm bosis (other than hig h-risk surgery), Treat ment of Deep Vein Thrombosis/Pulm onary Embolism, Preve ntion of systemic emb olism - Tissue heart va lves, Acute Myocardia l Infarction (to prevent systemic emboli sm), Valvular heart disease, Acute Myocardial Infa rction (to prevent sys temic embolism), Valv ular heart disease, Atrial Fibrillation, Bileaflet mecha nical valve in aortic position.2. Mec hanical prosthetic valv es (high risk), 2. 5 - 3.5 Presence of Lup us Anticoagulant o r Antiphospholipi d Antibodies, Pre vention of systemic emb olism - Acute Myocardia l Infarction (to prevent recurrent infar ct). THROMBOPLASTIN TIME [id number] 11:28:00 Test Item Value Reference Range Interpretation Comments THROMBOPLASTIN TIME PARTIAL 35.5 SECONDS 26-35 H (test code = PTT) CBC W/AUTO [id number] 11:07:00 Test Item Value Reference Range Interpretation Comments WHITE BLOOD CELL (test code = 6.6 K/mm3 3.5-11.0 N WBC) RED BLOOD CELL (test code = 4.31 M/mm3 4.70-6.10 L RBC) HEMOGLOBIN (test code = HGB) 12.1 G/DL 10.4-14.9 N HEMATOCRIT (test code = HCT) 37.3 % 31.5-44.1 N MEAN CELL VOLUME (test code = 86.5 Fl 84.5-98.6 N MCV) MEAN CELL HGB (test code = MCH) 28.1 pg 27.0-34.2 N MEAN CELL HGB CONCETRATION 32.4 G/DL 31.5-34.0 N (test code = MCHC) RED CELL DISTRIBUTION WIDTH 13.8 SD 11.5-14.5 N (test code = RDW) PLATELET COUNT (test code = 343 K/mm3 150-450 N PLT) MEAN PLATELET VOLUME (test code 9.60 fL 7.0-10.5 N = MPV) NEUTROPHIL % (test code = NT%) 61.1 % 40-76 N IMMATURE GRANULOCYTE % (test 0.5 % 0.0-5.0 N code = IG%) LYMPHOCYTE % (test code = LY%) 27.4 % 20.5-51.1 N MONOCYTE % (test code = MO%) 7.9 % 1.7-9.3 N EOSINOPHIL % (test code = EO%) 2.3 % 0.0-6.0 N BASOPHIL % (test code = BA%) 0.8 % 0.0-2.0 N NUCLEATED RBC % (test code = 0.0 /100WBC% 0.0-1.0 N NRBC%) NEUTROPHIL # (test code = NT#) 4.1 K/mm3 1.8-7.6 N IMMATURE GRANULOCYTE # (test 0.03 x10 3/uL 0.00-0.03 N code = IG#) LYMPHOCYTE # (test code = LY#) 1.8 K/mm3 0.6-3.2 N MONOCYTE # (test code = MO#) 0.5 K/mm3 0.3-1.1 N EOSINOPHIL # (test code = EO#) 0.2 K/mm3 0.0-0.4 N BASOPHIL # (test code = BA#) 0.1 K/mm3 0.0-0.1 N NUCLEATED RBC # (test code = 0.0 K/mm3 0.0-0.1 N NRBC#) MANUAL DIFF REQUIRED (test code NO DIFF/SCN CRITERIA = MDIFF) BASIC METABOLIC [id number] 10:48:00 Test Item Value Reference Range Interpretation Comments SODIUM (test code = NA) 136 mmol/L 134-147 N POTASSIUM (test code = 3.9 mmol/L 3.4-5.0 N K) CHLORIDE (test code = 107 mmol/L 100-108 N CL) CARBON DIOXIDE (test 23 mmol/L 21-32 N code = CO2) ANION GAP (test code = 6.0 GAP calc 4.0-15.0 N GAP) GLUCOSE (test code = 106 MG/DL 70-110 N GLU) BLOOD UREA NITROGEN 15 MG/DL 7-18 N (test code = BUN) GLOMERULAR FILTRATION >=60 max estimate >60 RATE (test code = GFR) estGFR CREATININE (test code = 1.1 MG/DL 0.6-1.0 H CREAT) CALCIUM (test code = CA) 9.6 MG/DL 8.5-10.1 N HCG SERUM [id number] 10:48:00 Test Item Value Reference Range Interpretation Comments HCG SERUM QUAL (test SERUM NEGATIVE SCREEN NEGATIVE code = HCGQL) COVID 19 INHOUSE [id number] 10:24:00 Test Item Value Reference Range Interpretation Comments COVID 19 INHOUSE AG NEGATIVE Negative Per manu facturer, (test code = negative result s should [id number]) be treated aspr esumptive and, if inconsi stent with clinical signs andsymptoms or necessary for patient man agement, should betested with an alternative mol ecular assay. Negative resultsdo not preclude SA RS-CoV-2 infection and s hould not be usedas the s ole basis for patient man agement decisions. Nega tive results should be considered in t he context of apatient's r ecent exposures, hist ory, presence of cli nicalsigns and symptoms co nsistent with COVID-19. PROTHROMBIN [id number] 10:11:00 Test Item Value Reference Range Interpretation Comments PT PATIENT (test 13.5 SECONDS 9.3-12.9 H code = PTP) INTERNATIONAL NORMAL 1.18 INR Unit 0.8-1.2 N TARGE T INR BY RATIO (test code = INDICATIO N Indication INR) INR1. Prophylax is of venous thrombos is 2.0 - 3.0 (orthoped ic surgery), Proph ylaxis of venous throm bosis (other than hig h-risk surgery), Treat ment of Deep Vein Thrombosis/Pulm onary Embolism, Preve ntion of systemic emb olism - Tissue heart va lves, Acute Myocardia l Infarction (to prevent systemic emboli sm), Valvular heart disease, Acute Myocardial Infa rction (to prevent sys temic embolism), Valv ular heart disease, Atrial Fibrillation, Bileaflet mecha nical valve in aortic position.2. Mec hanical prosthetic valv es (high risk), 2. 5 - 3.5 Presence of Lup us Anticoagulant o r Antiphospholipi d Antibodies, Pre vention of systemic emb olism - Acute Myocardia l Infarction (to prevent recurrent infar ct). THROMBOPLASTIN TIME [id number] 10:11:00 Test Item Value Reference Range Interpretation Comments THROMBOPLASTIN TIME PARTIAL 31.3 SECONDS 26-35 N (test code = PTT) CBC W/AUTO [id number] 09:59:00 Test Item Value Reference Range Interpretation Comments WHITE BLOOD CELL (test code = 13.8 K/mm3 3.5-11.0 H WBC) RED BLOOD CELL (test code = 4.30 M/mm3 4.70-6.10 L RBC) HEMOGLOBIN (test code = HGB) 12.2 G/DL 10.4-14.9 N HEMATOCRIT (test code = HCT) 37.4 % 31.5-44.1 N MEAN CELL VOLUME (test code = 87.0 Fl 84.5-98.6 N MCV) MEAN CELL HGB (test code = MCH) 28.4 pg 27.0-34.2 N MEAN CELL HGB CONCETRATION 32.6 G/DL 31.5-34.0 N (test code = MCHC) RED CELL DISTRIBUTION WIDTH 13.8 SD 11.5-14.5 N (test code = RDW) PLATELET COUNT (test code = 234 K/mm3 150-450 N PLT) MEAN PLATELET VOLUME (test code 9.90 fL 7.0-10.5 N = MPV) NEUTROPHIL % (test code = NT%) 83.2 % 40-76 H IMMATURE GRANULOCYTE % (test 0.6 % 0.0-5.0 N code = IG%) LYMPHOCYTE % (test code = LY%) 8.9 % 20.5-51.1 L MONOCYTE % (test code = MO%) 7.0 % 1.7-9.3 N EOSINOPHIL % (test code = EO%) 0.1 % 0.0-6.0 N BASOPHIL % (test code = BA%) 0.2 % 0.0-2.0 N NUCLEATED RBC % (test code = 0.0 /100WBC% 0.0-1.0 N NRBC%) NEUTROPHIL # (test code = NT#) 11.5 K/mm3 1.8-7.6 H IMMATURE GRANULOCYTE # (test 0.08 x10 3/uL 0.00-0.03 H code = IG#) LYMPHOCYTE # (test code = LY#) 1.2 K/mm3 0.6-3.2 N MONOCYTE # (test code = MO#) 1.0 K/mm3 0.3-1.1 N EOSINOPHIL # (test code = EO#) 0.0 K/mm3 0.0-0.4 N BASOPHIL # (test code = BA#) 0.0 K/mm3 0.0-0.1 N NUCLEATED RBC # (test code = 0.0 K/mm3 0.0-0.1 N NRBC#) MANUAL DIFF REQUIRED (test code NO DIFF/SCN CRITERIA = MDIFF) - XR CHEST 1 [id number] 12:50:00 [facility] 1995 Sex: F Name: ALIYA ROMERO [facility] : 1995 Age/S: 26 / F [id number] Unit #: [id number] Loc: [place] [address] Phys: Taurus Murphy MD Acct: [id number] Dis Date: Status: ADM IN PHONE #: [phone] Exam Date: 05/13/2021 1154 FAX #: Reason: SOB EXAMS: CPT: [id number] XR CHEST 1 V 22260 Flu bessy Time: DAP (Gy m2): Air Kerma (mGy): Single View Chest. Location: S17 Clinical Indication: Dyspnea Comparison: None Impression: There are mild streaky opacities within the mid and lower lungs, leftgreater than right. These are nonspecific and may be the result of atelectasis, edema, or pneumonia area heart size is normal. No obvious pleural effusion or pneumothorax. at 1250 Reported and signed by: Shiva Morales M.D. CC: Taurus Murphy MD; Tabatha Andrews MD PAGE 1 Signed Report Name: ALIYA ROMERO : 1995 Age/S: 26 / F [address] Unit #: [id number] Loc: [place] [address] Phys: Taurus Murphy MD Acct: [id number] Dis Date: Status: ADM IN PHONE #: [phone] Exam Date: 05/13/2021 1154 FAX #: Reason: SOB EXAMS: CPT: [id number] XR CHEST 1 V 14035 Fluoro Time: DAP (Gy m2): Air Kerma (mGy): <Continued> Technologist: Clari Jameson RT(R) Trnscb Date/Time: 05/13/2021 (1250) [email or web address] Orig Print D/T: S: 05/13/2021 (2013) PAGE 2 Signed ReportCOVID 19 INHOUSE [id number] 09:43:00 Test Item Value Reference Range Interpretation Comments COVID 19 INHOUSE AG NEGATIVE Negative Per silvia facturer, (test code = negative result s should [id number]) be treated aspr esumptive and, if inconsi stent with clinical signs andsymptoms or necessary for patient man agement, should betested with an alternative mol ecular assay. Negative resultsdo not preclude SA RS-CoV-2 infection and s hould not be usedas the s ole basis for patient man agement decisions. Nega tive results should be considered in t he context of apatient's r ecent exposures, hist ory, presence of cli nicalsigns and symptoms co nsistent with COVID-19. LACTIC [id number] 05:54:00 Test Item Value Reference Range Interpretation Comments LACTIC ACID (test code = LACT) 1.8 mmol/L 0.4-2.0 N BASIC METABOLIC [id number] 05:50:00 Test Item Value Reference Range Interpretation Comments SODIUM (test code = NA) 139 mmol/L 134-147 N POTASSIUM (test code = K) 3.9 mmol/L 3.4-5.0 N CHLORIDE (test code = CL) 109 mmol/L 100-108 H CARBON DIOXIDE (test code = CO2) 21 mmol/L 21-32 N ANION GAP (test code = GAP) 9.0 GAP calc 4.0-15.0 N GLUCOSE (test code = GLU) 101 MG/DL 70-110 N BLOOD UREA NITROGEN (test code = 13 MG/DL 7-18 N BUN) GLOMERULAR FILTRATION RATE (test 58 estGFR >60 L code = GFR) CREATININE (test code = CREAT) 1.2 MG/DL 0.6-1.0 H CALCIUM (test code = CA) 8.7 MG/DL 8.5-10.1 N CBC W/AUTO [id number] 05:36:00 Test Item Value Reference Range Interpretation Comments WHITE BLOOD CELL (test code = 10.9 K/mm3 3.5-11.0 N WBC) RED BLOOD CELL (test code = 4.16 M/mm3 4.70-6.10 L RBC) HEMOGLOBIN (test code = HGB) 11.9 G/DL 10.4-14.9 N HEMATOCRIT (test code = HCT) 35.9 % 31.5-44.1 N MEAN CELL VOLUME (test code = 86.3 Fl 84.5-98.6 N MCV) MEAN CELL HGB (test code = MCH) 28.6 pg 27.0-34.2 N MEAN CELL HGB CONCETRATION 33.1 G/DL 31.5-34.0 N (test code = MCHC) RED CELL DISTRIBUTION WIDTH 13.6 SD 11.5-14.5 N (test code = RDW) PLATELET COUNT (test code = 140 K/mm3 150-450 L PLT) MEAN PLATELET VOLUME (test code 10.00 fL 7.0-10.5 N = MPV) NEUTROPHIL % (test code = NT%) 88.5 % 40-76 H IMMATURE GRANULOCYTE % (test 1.6 % 0.0-5.0 N code = IG%) LYMPHOCYTE % (test code = LY%) 5.7 % 20.5-51.1 L MONOCYTE % (test code = MO%) 4.0 % 1.7-9.3 N EOSINOPHIL % (test code = EO%) 0.0 % 0.0-6.0 N BASOPHIL % (test code = BA%) 0.2 % 0.0-2.0 N NUCLEATED RBC % (test code = 0.0 /100WBC% 0.0-1.0 N NRBC%) NEUTROPHIL # (test code = NT#) 9.7 K/mm3 1.8-7.6 H IMMATURE GRANULOCYTE # (test 0.17 x10 3/uL 0.00-0.03 H code = IG#) LYMPHOCYTE # (test code = LY#) 0.6 K/mm3 0.6-3.2 N MONOCYTE # (test code = MO#) 0.4 K/mm3 0.3-1.1 N EOSINOPHIL # (test code = EO#) 0.0 K/mm3 0.0-0.4 N BASOPHIL # (test code = BA#) 0.0 K/mm3 0.0-0.1 N NUCLEATED RBC # (test code = 0.0 K/mm3 0.0-0.1 N NRBC#) MANUAL DIFF REQUIRED (test code NO DIFF/SCN CRITERIA = MDIFF) UR HCG [id number] 00:39:00 Test Item Value Reference Range Interpretation Comments UR HCG QUAL (test code = HCGQLU) NEGATIVE NEGATIVE AG HEPATITIS B [id number] 10:43:00 Test Item Value Reference Range Interpretation Comments AG HEPATITIS B SURFACE (test code NONREACTIVE NONREACTIVE = HBSAG) AB HEPATITIS C [id number] 10:43:00 Test Item Value Reference Range Interpretation Comments AB HEPATITIS C (test code = NONREACTIVE NONREACTIVE HCVAB) SIGNAL TO CUTOFF (test code = 0.05 <0.80 N CUTOFF) AB [id number] 10:43:00 Test Item Value Reference Range Interpretation Comments AB TREPONEMA (test code = TREPAB) NONREACTIVE NONREACTIVE AB HIV 1 10:43:00 Test Item Value Reference Range Interpretation Comments AB HIV 1 2 (test NONREACTIVE NONREACTIVE Done by [facility] code = [id number]) 4th Gen HIV Ag/Ab Combo Screen COVID 19 Asymptomatic IH [id number] 10:40:00 Test Item Value Reference Range Interpretation Comments COVID 19 NEGATIVE NEGATIVE This test has b een Asymptomatic IH AG authorize d only for the (test code = detection ofpro teins from COVNONPUIAG) SARS-CoV-2, not for any other viruses orpathogens. Ne gative results should be treated as presumptive andconfirmed [...] or approved; th e test hasbeen authori zed by FDA under an Emerge ncy Use [...] and/o r diagnosis of CO VID-19 under Dmweodv62 4(b)(1) of the Act, 21 U.S .C. 360bbb-3(b)(1), unless theauthorizatio n is terminated or r evoked sooner. CBC W/AUTO [id number] 09:48:00 Test Item Value Reference Range Interpretation [...] (test NORMAL NORMAL code = PLTMR) - [facility] BIO PH ID W/O [id number] 00:00:00 [facility] : 1995 Sex: F Patient Name: ALIYA ROMERO Unit No: [id number] EXAMS: CPT CODE: [id number] US FET BIO PH ID W/O NST 31521 PROCEDURE INFORMATION: Exam: US Biophysical Profile Without Non-Stress Test Exam date and time: 11/01/2020 11:33 AM Age: 25 years old Clinical indication: Screening exam; Routine US screening offetus; Third trimester (=28 weeks 0 days); ; Additional info: Decels in office TECHNIQUE: Imaging protocol: US biophysical profile without non-stress testing. COMPARISON: US PREG AFTER 1ST TRI 12/04/2016 8:57 AM FINDINGS: Gestation: Presentation: Roa viable intrauterine gestation is demonstrated in vertex presentation. The heart rhythm is regular with a heart rate of 136 bpm. Placenta: The the placenta is located posteriorly and grade 3 with the inferior extent away from the internal os. Amniotic fluid index: The biophysical profile score is 8/8. The amniotic fluid index is 13.9cm with the deepest pocket measuring 6.7 cm. [...] MD CC: Tabatha Andrews MD Technologist: Mallika Angelo RDMS Probe: TrnscrbdD/ (1224) GCD.CPS Orig Print D/T: S: 11/01/2020 (1224) [facility]: ALIYA ROMERO Radiology Department PHYS: Tabatha Fregoso [address] : 1995 AGE: 25 SEX: F [place], [place] [address] LOC: DejahBELIGCA PHONE #: [phone] EXAM DATE: 11/01/2020 STATUS: REG ER FAX #: [phone] RAD NO: Page 1 Signed Report Patient Name: ALIYA ROMERO Unit No: [id number] EXAMS: CPT CODE: [id number] [facility] BIO PH ID W/O NST 27987 (Continued) [facility] NAME: ALIYA ROMERO Radiology Department PHYS: REYMUNDO Tabatha Andrews [address] : 1995 AGE: 25 SEX: F [place], [place] [address] LOC: Charito.BELGICA PHONE #: [phone] EXAM DATE: 11/01/2020 STATUS: REG ER FAX #: [phone] RAD NO: Page 2 Signed Report
[2022-02-19] MEDS ORDERED: NA CHLORIDE 0.9% 1,000 ML ONE (18:32)
[2022-02-19] MEDS ORDERED: KETOROLAC 30 MG/ML INJ ONE (18:32)
[2022-02-19 18:33] LABS: Absolute Lymphocytes (CBC) 1.9 K/uL (0.7-4.9); Hematocrit 40.1 % (36.0-45.0); MCV 86.5 fL (80-100); MPV 8.5 fL (7.6-11.3); RBC Red Blood Cell Count 4.64 M/uL (3.86-4.86)
[2022-02-19 18:36] LABS: Urine Blood Negative (Negative); Urine Glucose Negative (Negative); Urine Protein 1+ (Negative); Urine Specific Gravity 1.025 (1.005-1.030); Urine pH 5.5 (5.0-7.0)
[2022-02-19 18:49] LABS: Urine Bacteria <20 /HPF (<20); Urine Crystals Unidentified Few /HPF (None Seen); Urine Mucus 1+ /HPF (None Seen); Urine WBC Clump Rare /HPF (None Seen)
[2022-02-19 18:51] LABS: Albumin 3.9 g/dL (3.4-5.0); Bilirubin Total 0.8 mg/dL (0.2-1.0); Potassium 3.4 mmol/L (3.5-5.1); Protein, Total 7.4 g/dL (6.4-8.2)
--- NOTE | 2022-02-19 19:00 | RAD REPORT ---
EXAM DESCRIPTION: CTStone Protocol - 02/19/2022 6:44 pm CLINICAL HISTORY: abd pain/back pain COMPARISON: Abdomen Pelvis W Contrast dated 05/11/2021 TECHNIQUE: CT of the abdomen and pelvis was performed without contrast. All CT scans are performed using dose optimization technique as appropriate and may include automated exposure control or mA/KV adjustment according to patient size. FINDINGS: Lower chest: No acute abnormality. Liver: Hepatic steatosis. Biliary: No biliary ductal dilatation. Stomach: No significant focal abnormality. Duodenum: No significant focal abnormality. Pancreas: No significant abnormality. Spleen: No significant abnormality. Adrenal: No suspicious lesions. Kidney/ureter: No hydronephrosis. Bilateral renal calculi are present. No ureteral calculi are identi fied. The largest stone bilaterally measures approximately 3 millimeters. Retroperitoneum: No retroperitoneal adenopathy. Vascular: No aneurysm. Bowel: No significant focal abnormality. Normal appendix. Peritoneum: No ascites or free air. Bladder: Grossly unremarkable. Reproductive: No adnexal masses. Bones: No acute fracture. Other: n/a IMPRESSION: Nonobstructive bilateral nephrolithiasis. No ureteral calculi. Normal appendix.
--- NOTE | 2022-02-19 19:26 | EDPHYS ---
Physician Documentation [facility] Name: Vanessa Guerin Age: 27 yrs Sex: Female : 1995 Arrival Date: 02/19/2022 Time: 17:36 Bed DIS3 Private MD: ED Physician Michael Maya HPI: 02/19 19:24 This 27 yrs old Female presents to ER via Ambulatory with complaints of kb Abdominal Pain. 19:24 The patient presents with abdominal pain in the upper abdomen. Onset: The kb symptoms/episode began/occurred just prior to arrival. The symptoms radiate to Associated signs and symptoms: none. The symptoms are described as constant. Modifying factors: The symptoms are alleviated by nothing, the symptoms are aggravated by pressure. Severity of pain: At its worst the pain was moderate in the emergency department the pain has improved. The patient has not experienced similar symptoms in the past. The patient has not recently seen a physician. 19:24 Patient was sitting at work when she felt a sudden pain to her upper abdomen and lower kb back. Denies any associated symptoms.. Historical: - Allergies: 18:20 No Known Allergies; aa5 - Home Meds: 18:20 None [Active]; aa5 - PMHx: 18:20 kidney stones; aa5 - PSHx: 18:20 Kidney stent; Lithotripsy; aa5 - Immunization history:: Adult Immunizations unknown. - Social history:: Smoking status: Patient denies any tobacco usage or history of. ROS: 19:23 Constitutional: Negative for fever, chills, and weight loss. kb 19:23 Abdomen/GI: Positive for abdominal pain, Negative for nausea, vomiting, and diarrhea. 19:23 All other systems are negative. 19:23 Back: Positive for pain at rest, of the low back area. kb Exam: 19:23 Constitutional: This is a well developed, well nourished patient who is awake, alert, kb and in no acute distress. Head/Face: Normocephalic, atraumatic. ENT: Moist Mucous membranes Cardiovascular: Regular rate and rhythm with a normal S1 and S2. No gallops, murmurs, or rubs. No pulse deficits. Respiratory: Respirations even and unlabored. No increased work of breathing. Talking in full sentences Back: No spinal tenderness. No costovertebral tenderness. Full range of motion. Skin: Warm, dry with normal turgor. Normal color. MS/ Extremity: Pulses equal, no cyanosis. Neurovascular intact. Full, normal range of motion. Neuro: Awake and alert, GCS 15, oriented to person, place, time, and situation. Moves all extremities. Normal gait. 19:23 Abdomen/GI: Inspection: abdomen appears normal, Bowel sounds: normal, Palpation: soft, in all quadrants, moderate abdominal tenderness, in the epigastric area, right upper quadrant and left upper quadrant. Vital Signs: 18:16 BP 95 / 72; Pulse 61; Resp 16 S; Temp 98.2(TE); Pulse Ox 99% on R/A; Weight 86.18 kg aa5 (R); Height 5 ft. 2 in. (157.48 cm) (R); 18:16 Body Mass Index 34.75 (86.18 kg, 157.48 cm) aa5 MDM: 18:19 Patient medically screened. kb 19:22 Differential diagnosis: Cholelithiasis, gastritis, gastroesophageal reflux disease, kb Ureterolithiasis. Data reviewed: vital signs, nurses notes. Consideration of Admission/Observation Escalation of care including admission/observation considered. Test considered but Not performed: Ultrasound abd US considered, but pt is having abd tenderness across upper abdomen without association to food that was sudden in onset. Pt has never had this pain before. . Counseling: I had a detailed discussion with the patient and/or guardian regarding: the historical points, exam findings, and any diagnostic results supporting the discharge/admit diagnosis, lab results, radiology results, the need for outpatient follow up, a family practitioner, to return to the emergency department if symptoms worsen or persist or if there are any questions or concerns that arise at home. 02/19 18:20 Order name: CBC with Diff; Complete Time: 18:40 kb 02/19 18:20 Order name: CMP; Complete Time: 18:54 kb 02/19 18:20 Order name: Lipase; Complete Time: 18:54 kb 02/19 18:20 Order name: Urine Microscopic Only; Complete Time: 18:50 kb 02/19 18:36 Order name: Urine Dipstick-Ancillary; Complete Time: 18:40 EDMS 02/19 18:38 Order name: Urine --Ancillary (enter results) bd 02/19 18:20 Order name: IV Saline Lock; Complete Time: 18:28 kb 02/19 18:20 Order name: Labs collected and sent; Complete Time: 18:28 kb 02/19 18:20 Order name: Urine Dipstick-Ancillary (obtain specimen); Complete Time: 18:35 kb 02/19 18:20 Order name: Urine Test (obtain specimen); Complete Time: 18:35 kb 02/19 18:20 Order name: CT Stone Protocol; Complete Time: 19:02 kb 02/19 18:52 Order name: Urine Culture EDDE Administered Medications: 18:30 Drug: NS 0.9% 1000 ml Route: IV; Rate: 1 bolus; Site: right antecubital; [facility] 18:30 Drug: TORadol - (ketorolac) 15 mg Route: IVP; Site: right antecubital; 5 Disposition Summary: 02/19/22 19:25 Discharge Ordered Location: Home kb Condition: Stable kb Diagnosis - Upper abdominal pain, unspecified kb - Dehydration kb Followup: kb - With: Emergency Department - When: As needed - Reason: Worsening of condition Followup: kb - With: Private Physician - When: 2 - 3 days - Reason: Recheck today's complaints, Continuance of care, Re-evaluation by your physician Discharge Instructions: - Discharge Summary Sheet kb - Dehydration, Adult kb - Abdominal Pain, Adult, [id number] kb Forms: - Medication Reconciliation Form kb - Thank You Letter kb - Antibiotic Education kb - Prescription Opioid Use kb Prescriptions: - Diclofenac Sodium 75 mg Oral tablet,delayed release (DR/EC) - take 1 tablet by ORAL route 2 times per day As needed; 30 tablet; Refills: 0, kb Product Selection Permitted Signatures: Dispatcher [employer] EDTori Quinonez, BOY-Shanna Lugo, RN RN aa5 Marla Cha RN RN jh5 Corrections: (The following items were deleted from the chart) 18:21 18:20 PMHx: None; aa5 aa5 18:21 18:20 PSHx: kidney stone removed; aa5 aa5
--- NOTE | 2022-02-19 19:26 | ER ---
Nurse's Notes [facility] Name: Vanessa Guerin Age: 27 yrs Sex: Female : 1995 Arrival Date: 02/19/2022 Time: 17:36 Bed DIS3 Private MD: Diagnosis: Upper abdominal pain, unspecified;Dehydration Presentation: 02/19 18:16 Chief complaint: Patient states: "all of a sudden I felt like my abdomen was ripping aa5 apart and now I feel it on my back too". Pt reports been sick with a cold. Denies nausea/vomiting. Coronavirus screen: congestion, cough unrelated to allergies. Ebola Screen: Patient denies travel to an Ebola-affected area in the 21 days before illness onset. Initial Sepsis Screen: Does the patient meet any 2 criteria? No. Patient's initial sepsis screen is negative. Does the patient have a suspected source of infection? No. Patient's initial sepsis screen is negative. Risk Assessment: Do you want to hurt yourself or someone else? Patient reports no desire to harm self or others. Onset of symptoms was February 19, 2022. 18:16 Acuity: GRACIA 3 aa5 18:16 Method Of Arrival: Ambulatory aa5 Historical: - Allergies: 18:20 No Known Allergies; aa5 - Home Meds: 18:20 None [Active]; aa5 - PMHx: 18:20 kidney stones; aa5 - PSHx: 18:20 Kidney stent; Lithotripsy; aa5 - Immunization history:: Adult Immunizations unknown. - Social history:: Smoking status: Patient denies any tobacco usage or history of. Vital Signs: 18:16 BP 95 / 72; Pulse 61; Resp 16 S; Temp 98.2(TE); Pulse Ox 99% on R/A; Weight 86.18 kg aa5 (R); Height 5 ft. 2 in. (157.48 cm) (R); 18:16 Body Mass Index 34.75 (86.18 kg, 157.48 cm) aa5 ED Course: 17:36 Patient arrived in ED. am2 18:15 Tori Rsos FNP-C is PSYCHIATRICP. kb 18:16 Michael Maya MD is Attending Physician. kb 18:16 Arm band placed on. aa5 18:19 Triage completed. aa5 18:28 Inserted saline lock: 20 gauge in right antecubital area, using aseptic technique. jh5 18:45 CT Stone Protocol In Process Unspecified. EDMS 19:58 IV discontinued, intact, bleeding controlled, No redness/swelling at site. Pressure jh5 dressing applied. Administered Medications: 18:30 Drug: NS 0.9% 1000 ml Route: IV; Rate: 1 bolus; Site: right antecubital; jh5 18:30 Drug: TORadol - (ketorolac) 15 mg Route: IVP; Site: right antecubital; jh5 Medication: 19:58 VIS not applicable for this client. jh5 Outcome: 19:25 Discharge ordered by . kb 19:58 Discharged to home ambulatory. jh5 19:58 Condition: good 19:58 Discharge instructions given to patient, Instructed on discharge instructions, follow up and referral plans. safety practices, Demonstrated understanding of instructions, follow-up care, medications. 19:58 Patient left the ED. 5 Signatures: Dispatcher [employer] EDMS Troi Ross, E COMMERCE STRATEGIST-C E COMMERCE STRATEGIST-Shanna Romero, RN RN aa5 Kathleen Tellez Jessica, RN RN jh5 Corrections: (The following items were deleted from the chart) 18:21 18:16 BP 95 / 72; Pulse 61bpm; Resp 16bpm; Spontaneous; Pulse Ox 99% RA; Temp 98.2F aa5 Temporal; aa5 18:21 18:20 PMHx: None; aa5 aa5 18:21 18:20 PSHx: kidney stone removed; aa5 aa5
[2022-02-19 19:46] LABS: Urine Specific Gravity/Preg 1.025 (1.005-1.030)
[2022-02-19 20:13] VITALS: BP 95/72; TEMP 98.2; O2SAT 99
== END 2022-02-19 19:58 | disposition home or self-care (01) ==
LOC: ER 17:35
DX: R10.10 Upper abdominal pain, unspecified (principal); E86.0 Dehydration; Z87.442 Personal history of urinary calculi
CPT/HCPCS: 87088; 85025; 87086; 36415; 81025; 87077; 87186; 83690; 80053; 76377; 74176; 96374; 99283; J7030; 81003; 81015